=== PATIENT | female | born 1950 | race Caucasian/White ===

== ENCOUNTER 2020-02-23 09:54 | Outpatient (CLI) | payer OTHER, SELFPAY ==
--- NOTE | ~2020-02-23 | MM_ITS ---
EXAMINATION: MM screening [facility] BI w [facility]lin HISTORY: Screening mammogram TECHNIQUE: Craniocaudal and mediolateral oblique 3-D tomosynthesis images were obtained and synthetic 2-D images were generated. CAD analysis was submitted and interpreted. COMPARISON: 01/12/2019, 12/28/2018, 12/23/2017, 12/06/2016, 11/26/2016 BREAST PARENCHYMAL COMPOSITION: There are scattered areas of fibroglandular density. FINDINGS: There is stable architectural distortion in the upper right breast at the site of prior exc isional biopsy. Cysts are noted in the left breast. There is no evidence of suspicious mass, calcific ation, or architectural distortion to suggest malignancy in either breast. There has been no suspicio us interval change. IMPRESSION: 1. No mammographic evidence of malignancy. 2. Recommend routine screening mammography in one year. BI-RADS Category 2: Benign finding(s). Reviewed, dictated and finalized at location A.
== END 2020-02-23 09:55 | disposition home or self-care (01) ==
PROVIDERS: PCP Family Medicine; Visit Provider Obstetrics & Gynecology
DX: Z12.31 Encounter for screening mammogram for malignant neoplasm of breast (principal)
CPT/HCPCS: 77063; 77067

== ENCOUNTER 2021-02-26 08:40 | Outpatient (CLI) | payer OTHER, SELFPAY ==
--- NOTE | ~2021-02-26 | MM_ITS ---
EXAMINATION: MM screening [facility] w [facility] HISTORY: Screening TECHNIQUE: Craniocaudal and mediolateral oblique 3-D tomosynthesis images were obtained and synthetic 2-D images were generated. CAD analysis was submitted and interpreted. COMPARISON: No prior mammogram is available for comparison at this institution. BREAST PARENCHYMAL COMPOSITION: There are scattered areas of fibroglandular density. FINDINGS: Stable benign-appearing masses upper outer quadrant of the left breast, previously characte rized as cysts. There is no evidence of suspicious mass, calcification, or architectural distortion t o suggest malignancy in either breast. There has been no suspicious interval change. IMPRESSION: 1. No mammographic evidence of malignancy. 2. Recommend routine screening mammography in one year. BI-RADS Category 2: Benign finding(s). Reviewed, dictated and finalized at location A.
== END 2021-02-26 08:41 | disposition home or self-care (01) ==
LOC: ANHIMG 08:42
PROVIDERS: PCP Family Medicine; Visit Provider Obstetrics & Gynecology
DX: Z12.31 Encounter for screening mammogram for malignant neoplasm of breast (principal)
CPT/HCPCS: 77063; 77067

== ENCOUNTER 2021-05-08 12:46 | Outpatient (CLI) | payer OTHER, SELFPAY ==
--- NOTE | ~2021-05-08 | DEXA_ITS ---
Bone Density Report Name: Chetna Matos Age: 70 Sex: Female Ethnicity: White Date of : 1950 Indication: osteopenia; cancer; hysterectomy; postmenopausal Referring Provider: Sam Echavarria Study: Bone densitometry was performed. Exam Date: May 08, 2021 Accession number: [id number] Bone Density: Region BMD T-score Z-score Classification AP Spine (L1-L4) 0.789 -2.3 -0.1 Osteopenia Femoral Neck (Left) 0.661 -1.7 0.2 Osteopenia Total Hip (Left) 0.788 -1.3 0.3 Osteopenia Total Hip Bilateral Avg 0.781 -1.4 0.3 Osteopenia Femoral Neck (Right) 0.718 -1.2 0.7 Osteopenia Total Hip (Right) 0.772 -1.4 0.2 Osteopenia World Health Organization criteria for BMD impression classify patients as: Normal (T-score at or above -1.0), Osteopenia (T-score between -1.0 and -2.5), or Osteoporosis (T-score at or below -2.5). 10-year Fracture Risk(1): Major Osteoporotic Fracture 9.8% Hip Fracture 1.8% Reported Risk Factors: [place] (), Neck BMD=0.661, BMI=21.3 (1) FRAX(R) Version 3.08. Fracture probability calculated for an untreated patient. Fracture probability may be lower if the patient has received treatment. Previous Exams: Region Exam Age BMD T-score BMD Change BMD Change Date g/cm2 vs Baseline vs Previous AP Spine(L1-L4) 05/08/2021 70 0.789 -2.3 -0.081(-9.3%)* -0.057(-6.8%)# 03/05/2019 68 0.846 -1.8 -0.024(-2.7%)# 0.040(4.9%)* 01/09/2017 66 0.807 -2.2 -0.063(-7.3%)# -0.078(-8.8%)# 01/10/2014 63 0.885 -1.5 0.014(1.7%) 0.014(1.7%) 10/08/2011 61 0.870 -1.6 Total Hip(Left) 05/08/2021 70 0.788 -1.3 -0.024(-2.9%) -0.029(-3.6%)# 03/05/2019 68 0.817 -1.0 0.005(0.6%)# -0.059(-6.7%)* 01/09/2017 66 0.876 -0.5 0.064(7.9%)# 0.073(9.1%)# 01/10/2014 63 0.803 -1.1 -0.009(-1.1%) -0.009(-1.1%) 10/08/2011 61 0.812 -1.1 Total Hip(Right) 05/08/2021 70 0.772 -1.4 -0.036(-4.4%)* -0.040(-4.9%)# 03/05/2019 68 0.812 -1.1 0.004(0.5%)# -0.050(-5.8%)* 01/09/2017 66 0.862 -0.7 0.054(6.7%)# 0.038(4.6%)# 01/10/2014 63 0.824 -1.0 0.016(1.9%) 0.016(1.9%) 10/08/2011 61 0.808 -1.1 *Denotes significance at 95% confidence level, LSC for AP Spine = 0.022 g/cm2, LSC for Total Hip = 0.027 g/cm2 Clinical Information Provided by Patient: Has used the following medications: Fosamax (i.e. alendronate), Vitamin D, Calcium Has the following medical conditions: Cancer, Hysterectomy Patient maximum height was 63 [place]
== END 2021-05-08 12:47 | disposition home or self-care (01) ==
LOC: ANHIMG 12:49
PROVIDERS: PCP Family Medicine; Visit Provider Family Medicine
DX: Z78.0 Asymptomatic menopausal state (principal); M85.88 Other specified disorders of bone density and structure, other site; M85.852 Other specified disorders of bone density and structure, left thigh; M85.851 Other specified disorders of bone density and structure, right thigh
CPT/HCPCS: 77080

== ENCOUNTER 2022-04-09 07:58 | Outpatient (CLI) | payer OTHER, SELFPAY ==
--- NOTE | ~2022-04-09 | MM_ITS ---
EXAMINATION: MM screening [facility] BI w [facility] HISTORY: Screening mammogram TECHNIQUE: Craniocaudal and mediolateral oblique 3-D tomosynthesis images were obtained and synthetic 2-D images were generated. CAD analysis was submitted and interpreted. COMPARISON: 02/26/2021, 02/23/2020, 01/12/2019, 12/28/2018 BREAST PARENCHYMAL COMPOSITION: There are scattered areas of fibroglandular density. FINDINGS: There is stable architectural distortion in the upper outer quadrant of right breast at the site of prior excisional biopsy. There is no suspicious mass, calcification, or architectural distor tion to suggest malignancy in either breast. There has been no suspicious interval change. IMPRESSION: 1. No mammographic evidence of malignancy. 2. Recommend routine screening mammography in one year. BI-RADS Category 2: Benign finding(s). Reviewed, dictated and finalized at location A.
== END 2022-04-09 07:59 | disposition home or self-care (01) ==
PROVIDERS: PCP Family Medicine; Visit Provider Obstetrics & Gynecology
DX: Z12.31 Encounter for screening mammogram for malignant neoplasm of breast (principal)
CPT/HCPCS: 77063; 77067

== ENCOUNTER 2022-04-22 03:04 | Day surgery (SDC) | payer OTHER, SELFPAY ==
[2022-04-10 12:45] VITALS: BMI 22.2
--- NOTE | 2022-04-22 07:57 | WPDANESEPPF ---
Anes - Initial Pre Proc Eval Procedure: Operation Date: 04/22/22 11:30 Proposed Procedures p Screening Colonoscopy - Chester Romero MD Date/Time: 04/22/22 07:57 Surgeon: Chester Romero MD Pre Op Diagnosis: history of colon polyps Patient Data Age: 71 Gender: F Height: 1.6 m Weight: 57 kg Allergies Allergy/AdvReac Type Severity Reaction Status Date / Time amoxicillin Allergy Mild hives Verified 04/22/22 10:49 Penicillins Allergy Mild hives Verified 04/22/22 10:49 Sulfa (Sulfonamide Allergy Mild hives Verified 04/22/22 10:49 Antibiotics) sulfanilamide Allergy Mild hives Verified 04/22/22 10:49 Home Medications Medication Instructions Recorded Confirmed Type loratadine 10 mg tablet (Claritin) 10 mg PO DAILY 10/05/19 04/10/22 History lancets (Accu-Chek Softclix See Rx Instructions .Route 06/13/21 04/10/22 Rx Lancets) .COMPLEX #100 ea rosuvastatin 10 mg tablet (Crestor) 10 mg PO DAILY #90 tabs 07/13/21 04/10/22 Rx blood sugar diagnostic (Accu-Chek #100 ea 12/26/21 04/10/22 Rx Bharti Plus test strips) fluticasone propionate 50 1 spray intranasal DAILY 01/23/22 04/10/22 History mcg/actuation nasal spray,suspension (Flonase Allergy Relief) Patient hx anesthesia problems: none Family hx anesthesia problems: none Results Review: All pre-operative results and documents have been reviewed as part of the pre-operative evaluation. 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 Diabetes Heartburn HLD (hyperlipidemia) Osteopenia Screening mammogram, encounter for Surgical History Surgical History History of breast biopsy (~1999) carcinoma lobular ca in situ right breast History of cholecystectomy (~10/2007) History of hernia repair (~10/2007) History of partial thyroidectomy (~1990) History of total abdominal hysterectomy and bilateral salpingo-oophorectomy (~1995) Family History Family History Father Hypertension Family history of lung cancer Family history of coronary artery disease Diabetes mellitus Cerebrovascular accident Family history of heart disease in male family member before age 55 Mother Hypertension Family history of coronary artery disease Cerebrovascular accident Family history of heart disease in male family member before age 55 Osteoporosis Social History Social History Social History: Smoking status: Never smoker Second hand tobacco smoke exposure: No Alcohol intake: never Substance use: never Substance use type: does not use Living arrangements: alone Additional living arrangements comments: Additional occupation/education comments: [employer] de[employer] Gender identity (if verbalized by the patient): Female Sexual Orientation (if Verbalized by the Patient): Straight or Heterosexual Spiritual care concerns: No Anes - Eval Final PreProcedure Day of Procedure 04/22/22 07:57 Patient weight: normal Heart: regular rate and rhythm Lungs: clear to auscultation Airway: Mallampati scale class II Neurological: alert and oriented Last oral intake: >/= 8 hours ASA classification: III Emergent: no Anesthetic plan: proceed Anesthesia type and monitoring: general GIVS and standard monitoring Results Review: All pre-operative results and documents have been reviewed as part of the pre-operative evaluation. Informed Consent: The patient's anesthetic plan and its attendant risks and benefits were discussed with the patient/family/POA. Questions were solicited and answers provided to the satisfaction of the patient/family/POA.
[2022-04-22 10:50] VITALS: BP 144/66; PULSE 89; RESP 17; TEMP 36.6; O2SAT 96
[2022-04-22] MEDS: LACTATED RINGERS 1,000 ML 150 ML IV CONT (11:01)
--- NOTE | 2022-04-22 11:02 | PM.IMHP ---
H&P: HPI History of Present Illness Date/Time: 04/22/22 11:02 Chief Complaint: History of colon polyps and family history of colon polyps Narrative: this is a 71-year-old white female patient presents for colonoscopy. Patient's current weight appetite and bowel movements are normal. She denies abdominal pain. She has had no bleeding. Patient did have prior colon polyps at colonoscopy 6 years ago. Patient reports her father has on polyps. Patient presents today for neoplasia screening colonoscopy. Review of Systems Review of Systems: Review of systems noncontributory. 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 Diabetes Heartburn HLD (hyperlipidemia) Osteopenia Screening mammogram, encounter for Surgical History Surgical History History of breast biopsy (~1999) carcinoma lobular ca in situ right breast History of cholecystectomy (~10/2007) History of hernia repair (~10/2007) History of partial thyroidectomy (~1990) History of total abdominal hysterectomy and bilateral salpingo-oophorectomy (~1995) Family History Family History Father Hypertension Family history of lung cancer Family history of coronary artery disease Diabetes mellitus Cerebrovascular accident Family history of heart disease in male family member before age 55 Mother Hypertension Family history of coronary artery disease Cerebrovascular accident Family history of heart disease in male family member before age 55 Osteoporosis Social History Social History Social History: Smoking status: Never smoker Second hand tobacco smoke exposure: No Alcohol intake: never Substance use: never Substance use type: does not use Living arrangements: alone Additional living arrangements comments: Additional occupation/education comments: [employer] de[employer] Gender identity (if verbalized by the patient): Female Sexual Orientation (if Verbalized by the Patient): Straight or Heterosexual Spiritual care concerns: No Meds Home Medications and Allergies Home Medications Medication Instructions Recorded Confirmed Type loratadine 10 mg tablet (Claritin) 10 mg PO DAILY 10/05/19 04/10/22 History lancets (Accu-Chek Softclix See Rx Instructions .Route 06/13/21 04/10/22 Rx Lancets) .COMPLEX #100 ea rosuvastatin 10 mg tablet (Crestor) 10 mg PO DAILY #90 tabs 07/13/21 04/10/22 Rx blood sugar diagnostic (Accu-Chek #100 ea 12/26/21 04/10/22 Rx Bharti Plus test strips) fluticasone propionate 50 1 spray intranasal DAILY 01/23/22 04/10/22 History mcg/actuation nasal spray,suspension (Flonase Allergy Relief) Allergies Allergy/AdvReac Type Severity Reaction Status Date / Time amoxicillin Allergy Mild hives Verified 04/22/22 10:49 Penicillins Allergy Mild hives Verified 04/22/22 10:49 Sulfa (Sulfonamide Allergy Mild hives Verified 04/22/22 10:49 Antibiotics) sulfanilamide Allergy Mild hives Verified 04/22/22 10:49 Vital Signs Vital Signs - 24 hr 04/22/22 10:50 Temperature 97.9 F Pulse Rate 89 Respiratory Rate 17 Blood Pressure 144/66 H Pulse Oximetry 96 Oxygen Delivery Room Air Exam Narrative: Physical exam reveals patient to be alert. Vital signs stable. HEENT exam is unremarkable. Patient is anicteric. Lungs are clear to auscultation and percussion. Heart is without murmur or extra sounds. Abdominal exam bowel sounds are present soft nontender with no organomegaly. Digital external rectal exam is normal. Assessment and Plan Assessment and plan (1) History of colon polyps: Code(s): Z86.010 - Personal history of colonic polyps Status: Acute Assessment and Plan:
[2022-04-22] MEDS: SIMETHICONE ORAL SUSPENSION 20 MG/0.3 ML 30 ML BOTTLE 0.6 ML IRRIGATION (12:22)
[2022-04-22 12:31] VITALS: BP 99/45; PULSE 85; RESP 25; O2SAT 98
[2022-04-22 12:41] VITALS: BP 105/54; PULSE 85; RESP 24; O2SAT 99
[2022-04-22 12:51] VITALS: BP 112/70; PULSE 80; RESP 18; O2SAT 100
== END 2022-04-22 12:59 | disposition home or self-care (01) ==
PROVIDERS: PCP Family Medicine; Visit Provider Internal Medicine Gastroenterology
PROC: 0DJD8ZZ Inspection of Lower Intestinal Tract, Via Natural or Artificial Opening Endoscopic (ICD-10-PCS; CPT 45378; principal; 2022-04-22 11:30)
DX: Z12.11 Encounter for screening for malignant neoplasm of colon (principal); Z86.010 Personal history of colon polyps; Z83.71 Family history of colonic polyps; K64.8 Other hemorrhoids; E11.9 Type 2 diabetes mellitus without complications; R12 Heartburn; E78.5 Hyperlipidemia, unspecified; M19.90 Unspecified osteoarthritis, unspecified site; Z85.3 Personal history of malignant neoplasm of breast; Z90.49 Acquired absence of other specified parts of digestive tract
CPT/HCPCS: 45378; J2704; J7120

== ENCOUNTER 2023-05-01 11:30 | Day surgery (SDC) | payer MEDICARE, SELFPAY ==
[2023-05-01 12:45] VITALS: BP 152/75; PULSE 75; RESP 20; O2SAT 100
--- NOTE | 2023-05-01 12:54 | PM.HPGS ---
History of Present Illness History of Present Illness Consent: Risks, benefits, and alternatives have been discussed and questions answered. Patient agrees to proceed with procedure. Chief complaint: Dysphagia Narrative: Chetna Matos is a 72 year old female patient presents for EGD. States that when she eats food will catch in the mid substernal portion the chest. This happens more often with solid foods such as chicken. She also has difficulty with pills. Patient denies any weight loss or bleeding. She denies any significant heartburn but occasionally has heartburn. When food catches we will add more for fluid developing in her mouth. She has diff any eating afterwards and causes herself to regurgitate or vomit to relieve this sensation. Review of Systems Review of Systems: Review of systems is noncontributory. 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 Diabetes GERD (gastroesophageal reflux disease) Heartburn HLD (hyperlipidemia) Hypertension rx meds Osteopenia Screening mammogram, encounter for Surgical History Surgical History History of breast biopsy (~1999) carcinoma lobular ca in situ right breast History of cholecystectomy (~10/2007) History of hernia repair (~10/2007) History of partial thyroidectomy (~1990) History of total abdominal hysterectomy and bilateral salpingo-oophorectomy (~1995) Family History Family History Father Hypertension Family history of lung cancer Family history of coronary artery disease Diabetes mellitus Cerebrovascular accident Family history of heart disease in male family member before age 55 Mother Hypertension Family history of coronary artery disease Cerebrovascular accident Family history of heart disease in male family member before age 55 Osteoporosis Social History Social History Social History: Smoking status: Never smoker Second hand tobacco smoke exposure: No Alcohol intake: current Alcohol use details: 2 x year Substance use: never Substance use type: does not use Lack of Transportation: No Lack of Food: Never True Current Housing: I Have Housing Concerned About Future Housing: No Difficulty Paying Gas/Electric Bills: No Difficulty Paying for Meds: No Currently Unemployed: No Education: Master's Degree or Higher Difficulty w/ Childcare or Family Care: No Living arrangements: alone Additional living arrangements comments: Occupation/Education: retired Additional occupation/education comments: [employer] de[employer] Gender identity (if verbalized by the patient): Female Sexual Orientation (if Verbalized by the Patient): Straight or Heterosexual Spiritual care concerns: No Meds Home Medications and Allergies Home Medications Medication Instructions Recorded Confirmed Type lancets (Accu-Chek Softclix See Rx Instructions .Route 06/13/21 04/11/23 Rx Lancets) .COMPLEX #100 ea blood sugar diagnostic (Accu-Chek #100 ea 12/26/21 04/02/23 Rx Bharti Plus test strips) fluticasone propionate 50 1 spray intranasal DAILY 01/23/22 04/11/23 History mcg/actuation nasal spray,suspension (Flonase Allergy Relief) rosuvastatin 10 mg tablet (Crestor) 10 mg PO DAILY #90 tabs 07/15/22 04/11/23 Rx lisinopril 5 mg tablet 5 mg PO DAILY #90 tabs 01/13/23 04/11/23 Rx omeprazole 40 mg capsule,delayed 40 mg PO DAILY #30 caps 04/02/23 04/11/23 Rx release Allergies Allergy/AdvReac Type Severity Reaction Status Date / Time amoxicillin Allergy Mild hives Verified 04/11/23 09:20 Penicillins Allergy Mild hives Verified 04/11/23 09:20 Sulfa (Sulfonamide Allergy Mild hives Verified 04/11/23 09:20 Anti
--- NOTE | 2023-05-01 13:27 | WPDANESEPPF ---
Anes - Initial Pre Proc Eval Procedure: Operation Date: 05/01/23 14:00 Proposed Procedures p Esophagogastroduodenoscopy - Chester Romero MD Date/Time: 05/01/23 13:27 Surgeon: Chester Romero MD Pre Op Diagnosis: Dysphagia Patient Data Age: 72 Gender: F Height: 1.6 m Weight: 58.6 kg Allergies Allergy/AdvReac Type Severity Reaction Status Date / Time amoxicillin Allergy Mild hives Verified 05/01/23 13:21 Penicillins Allergy Mild hives Verified 05/01/23 13:21 Sulfa (Sulfonamide Allergy Mild hives Verified 05/01/23 13:21 Antibiotics) sulfanilamide Allergy Mild hives Verified 05/01/23 13:21 Home Medications Medication Instructions Recorded Confirmed Type lancets (Accu-Chek Softclix See Rx Instructions .Route 06/13/21 05/01/23 Rx Lancets) .COMPLEX #100 ea blood sugar diagnostic (Accu-Chek #100 ea 12/26/21 05/01/23 Rx Bharti Plus test strips) fluticasone propionate 50 1 spray intranasal DAILY 01/23/22 05/01/23 History mcg/actuation nasal spray,suspension (Flonase Allergy Relief) rosuvastatin 10 mg tablet (Crestor) 10 mg PO DAILY #90 tabs 07/15/22 05/01/23 Rx lisinopril 5 mg tablet 5 mg PO DAILY #90 tabs 01/13/23 05/01/23 Rx omeprazole 40 mg capsule,delayed 40 mg PO DAILY #30 caps 04/02/23 05/01/23 Rx release Patient hx anesthesia problems: none Family hx anesthesia problems: none Results Review: All pre-operative results and documents have been reviewed as part of the pre-operative evaluation. 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 Diabetes GERD (gastroesophageal reflux disease) Heartburn HLD (hyperlipidemia) Hypertension rx meds Osteopenia Screening mammogram, encounter for Surgical History Surgical History History of breast biopsy (~1999) carcinoma lobular ca in situ right breast History of cholecystectomy (~10/2007) History of hernia repair (~10/2007) History of partial thyroidectomy (~1990) History of total abdominal hysterectomy and bilateral salpingo-oophorectomy (~1995) Family History Family History Father Hypertension Family history of lung cancer Family history of coronary artery disease Diabetes mellitus Cerebrovascular accident Family history of heart disease in male family member before age 55 Mother Hypertension Family history of coronary artery disease Cerebrovascular accident Family history of heart disease in male family member before age 55 Osteoporosis Social History Social History Social History: Smoking status: Never smoker Second hand tobacco smoke exposure: No Alcohol intake: current Alcohol use details: 2 x year Substance use: never Substance use type: does not use Lack of Transportation: No Lack of Food: Never True Current Housing: I Have Housing Concerned About Future Housing: No Difficulty Paying Gas/Electric Bills: No Difficulty Paying for Meds: No Currently Unemployed: No Education: Master's Degree or Higher Difficulty w/ Childcare or Family Care: No Living arrangements: alone Additional living arrangements comments: Occupation/Education: retired Additional occupation/education comments: [employer] de[employer] Gender identity (if verbalized by the patient): Female Sexual Orientation (if Verbalized by the Patient): Straight or Heterosexual Spiritual care concerns: No Anes - Eval Final PreProcedure Day of Procedure 05/01/23 13:27 Patient weight: normal Heart: regular rate and rhythm Lungs: clear to auscultation Airway: Mallampati scale class 1 Neurological: alert and oriented Last oral intake: >/= 8 hours ASA classification: III Emergent: no Anesthetic
[2023-05-01 13:36] LABS: Glucose Point of Care 100 mg/dl (65-105)
[2023-05-01] MEDS: LACTATED RINGERS 1,000 ML 150 ML IV CONT (13:36)
[2023-05-01 13:50] VITALS: BP 145/68; PULSE 83; RESP 20; O2SAT 100
[2023-05-01 14:00] VITALS: BP 134/73; PULSE 71; RESP 18; O2SAT 97
--- NOTE | 2023-05-01 14:00 | WPDANESPN ---
Anes - Prog Note Post-Op Date/Time: 05/01/23 14:00 Cardiovascular status: normal Respiratory status: normal Airway patency: baseline Mental status: baseline Post-Op hydration status: normal Vital Signs: Last Vital Signs Pulse 83 05/01/23 13:50 Resp 20 05/01/23 13:50 BP 145/68 H 05/01/23 13:50 Pulse Ox 100 05/01/23 13:50 O2 Del Method Room Air 05/01/23 13:50 Pain Score (VAS): 0 I/O: Intake & Output 04/30/23 05/01/23 05/01/23 23:59 07:59 15:59 Intake Total 400 Balance 400 05/01/23 13:34 POC Capillary Glucose 100 Patient Feedback: Patient satisfied with anesthetic care.
[2023-05-01 14:10] VITALS: BP 144/72; PULSE 77; RESP 18; O2SAT 100
== END 2023-05-01 14:23 | disposition home or self-care (01) ==
PROVIDERS: PCP Family Medicine; Visit Provider Internal Medicine Gastroenterology
PROC: 0DJ08ZZ Inspection of Upper Intestinal Tract, Via Natural or Artificial Opening Endoscopic (ICD-10-PCS; CPT 43235; principal; 2023-05-01 14:00)
DX: R13.19 Other dysphagia (principal); Q39.4 Esophageal web
CPT/HCPCS: 43450

== ENCOUNTER 2023-07-09 15:10 | Outpatient (CLI) | payer MEDICARE, SELFPAY ==
--- NOTE | ~2023-07-09 | MM_ITS ---
EXAMINATION: MM screening [facility] BI w [facility] HISTORY: Screening mammogram TECHNIQUE: Craniocaudal and mediolateral oblique 3-D tomosynthesis images were obtained and synthetic 2-D images were generated. CAD analysis was submitted and interpreted. COMPARISON: 04/09/2022, 02/26/2021, 02/23/2020 bilateral screening mammogram examinations 01/12/2019 bilateral diagnostic mammogram and complete bilateral breast ultrasound examination BREAST PARENCHYMAL COMPOSITION: The breasts are heterogeneously dense, which may obscure small masses . FINDINGS: Biopsy marker on the right; history of 2 prior right breast biopsies, reportedly benign: Re portedly malignant. Occasional left nodular circumscribed opacities, the largest approximately 9 mm, situated posteriorly in the mid to upper outer breast, with halo sign, likely a chronic benign cyst. No suspicious mass There is no evidence of suspicious mass, calcification, or architectural distortio n to suggest malignancy in either breast. There has been no suspicious interval change. IMPRESSION: 1. Benign findings No mammographic evidence of malignancy. 2. Recommend routine screening mammography in one year. BI-RADS Category 2: Benign finding(s). Reviewed, dictated and finalized at location A. [employer]
== END 2023-07-09 15:11 | disposition home or self-care (01) ==
LOC: ANHIMG 15:12
PROVIDERS: PCP Family Medicine; Visit Provider Obstetrics & Gynecology
DX: Z12.31 Encounter for screening mammogram for malignant neoplasm of breast (principal)
CPT/HCPCS: 77063; 77067

== ENCOUNTER 2023-10-15 12:46 | Outpatient (CLI) | payer MEDICARE, SELFPAY ==
--- NOTE | ~2023-10-15 | DEXA_ITS ---
Bone Density Report Name: KELLIE BELLAMY Age: 73 Sex: Female Ethnicity: White Date of : 1950 Indication: osteopenia; height loss; hysterectomy; Referring Provider: SAL COLLINS Study: Bone densitometry was performed. Exam Date: October 15, 2023 Accession number: [id number] Bone Density: Region BMD T-score Z-score Classification AP Spine(L1-L4) 0.768 -2.5 -0.2 Osteoporosis Femoral Neck (Left) 0.649 -1.8 0.2 Osteopenia Total Hip (Left) 0.759 -1.5 0.2 Osteopenia Femoral Neck (Right) 0.714 -1.2 0.8 Osteopenia Total Hip (Right) 0.829 -0.9 0.8 Normal Total Hip Mean 0.794 -1.2 0.5 Osteopenia World Health Organization criteria for BMD impression classify patients as: Normal (T-score at or above -1.0), Osteopenia (T-score between -1.0 and -2.5), or Osteoporosis (T-score at or below -2.5). 10-year Fracture Risk: FRAX not reported because: Some T-score for Spine Total or Hip Total or Femoral Neck at or below -2.5 Previous Exams: Region Exam Age BMD T-score BMD Change BMD Change Date g/cm2 vs Baseline vs Previous AP Spine (L1-L4) 10/15/2023 73 0.768 -2.5 -0.117 (-13.2% -0.021 (-2.7%) 05/08/2021 70 0.789 -2.3 -0.095 (-10.8% -0.057 (-6.8%) 03/05/2019 68 0.846 -1.8 -0.038 (-4.3%) 0.040 (4.9%)* 01/09/2017 66 0.807 -2.2 -0.078 (-8.8%) -0.078 (-8.8%) 01/10/2014 63 0.885 -1.5 Total Hip(Left) 10/15/2023 73 0.759 -1.5 -0.044 (-5.5%) -0.029 (-3.7%) 05/08/2021 70 0.788 -1.3 -0.015 (-1.8%) -0.029 (-3.6%) 03/05/2019 68 0.817 -1.0 0.014 (1.8%)# -0.059 (-6.7%) 01/09/2017 66 0.876 -0.5 0.073 (9.1%)# 0.073 (9.1%)# 01/10/2014 63 0.803 -1.1 Total Hip(Right) 10/15/2023 73 0.829 -0.9 0.005 (0.6%)# 0.057 (7.3%)# 05/08/2021 70 0.772 -1.4 -0.052 (-6.3%) -0.040 (-4.9%) 03/05/2019 68 0.812 -1.1 -0.012 (-1.4%) -0.050 (-5.8%) 01/09/2017 66 0.862 -0.7 0.038 (4.6%)# 0.038 (4.6%)# 01/10/2014 63 0.824 -1.0 *Denotes significance at 95% confidence level, LSC for AP Spine = 0.022 g/cm2, LSC for Total Hip = 0.027 g/cm2 # Denotes dissimilar scan types or analysis methods Clinical Information Provided by Patient: Has used the following medications: Vitamin D, Calcium Has the following medical conditions: Hysterectomy Patient maximum height was 63 Menopause Age: 44 No regular weight bearing exercise Drinks caffeinated beverages Onset of menses at age 13 Number of children 1
== END 2023-10-15 12:47 | disposition home or self-care (01) ==
PROVIDERS: PCP Family Medicine; Visit Provider Family Medicine
DX: Z78.0 Asymptomatic menopausal state (principal); M81.0 Age-related osteoporosis without current pathological fracture; M85.852 Other specified disorders of bone density and structure, left thigh; M85.851 Other specified disorders of bone density and structure, right thigh
CPT/HCPCS: 77080

== ENCOUNTER 2024-04-07 11:31 | Outpatient (CLI) | payer MEDICARE, SELFPAY ==
--- NOTE | ~2024-04-07 | XR_ITS ---
Left Shoulder Technique: AP and axillary views were obtained. Clinical History: Pain Findings: No fracture or dislocation is seen. Osseous alignment is anatomic. The glenohumeral and acr omioclavicular joint spaces are preserved. Soft tissues are unremarkable. Impression: Unremarkable left shoulder radiographs. Reviewed, dictated and finalized at [facility]. Impression: Unremarkable left shoulder radiographs.
== END 2024-04-07 11:32 ==
LOC: MICIMG 11:32
PROVIDERS: PCP Family Medicine; Visit Provider Family Medicine
DX: M25.512 Pain in left shoulder (principal)
CPT/HCPCS: 73030

== ENCOUNTER 2024-08-19 09:44 | Outpatient (CLI) | payer MEDICARE, SELFPAY ==
--- NOTE | ~2024-08-19 | MM_ITS ---
EXAMINATION: MM screening rossy BI w carlin HISTORY: Screening TECHNIQUE: Craniocaudal and mediolateral oblique 3-D tomosynthesis images were obtained and synthetic 2-D images were generated. CAD analysis was submitted and interpreted. COMPARISON: Comparison to multiple prior studies sequentially, with oldest reviewed study dated 12/28. BREAST PARENCHYMAL COMPOSITION: There are scattered areas of fibroglandular density. FINDINGS: There is no evidence of suspicious mass, calcification, or architectural distortion to sugg est malignancy in either breast. There has been no suspicious interval change. IMPRESSION: 1. No mammographic evidence of malignancy. 2. Recommend routine screening mammography in one year. BI-RADS Category 1: Negative Reviewed, dictated and finalized at location [facility]. [facility]
== END 2024-08-19 09:45 | disposition home or self-care (01) ==
PROVIDERS: PCP Family Medicine; Visit Provider Family Medicine
DX: Z12.31 Encounter for screening mammogram for malignant neoplasm of breast (principal)
CPT/HCPCS: 77063; 77067